=== PATIENT | female | born 1960 | race Caucasian/White ===

== ENCOUNTER 2016-11-16 20:40 | Emergency (ER) | payer SELFPAY ==
[~2016-11-16] VITALS: Ht 160 cm; Wt 100.0 kg
[~2016-11-16 20:40] MED LIST: AMLO10TA2 PO; HYDR-3533 PO; IBUP800T23 PO; LOSA50TA2 PO
[2016-11-16 20:49] VITALS: BP 146/84; PULSE 98; RESP 14; TEMP 98.9; O2SAT 98
[2016-11-16] MEDS ORDERED: VANCOMYCIN INJ 1,000 MG in SODIUM CHLOR 0.9% 250 ML INJ 250 ML IV ONE (21:30)
[2016-11-16] MEDS ORDERED: CLIN1CAP5 PO (21:37)
[2016-11-16] MEDS ORDERED: ZOFR4TAB3 SL (21:37)
[2016-11-16] MEDS ORDERED: BACT800T5 PO (21:37)
[2016-11-16] MEDS ORDERED: NORC5TAB PO (21:37)
--- NOTE | 2016-11-16 21:37 | PD ---
HPI Chief Complaint: Skin Problem Time Seen by Provider: 21:24 Travel History International Travel<30 days: No Contact w/Intl Traveler<30days: No Traveled to known affect area: No History of Present Illness HPI 56-year-old female complains of pain swelling right side of jaw. Patient states the symptoms started 4 days ago. Patient states that she has some pus draining out from the lesion the right-sided jaw. Patient denies any fever chills. Patient complaining of body ache. Patient denies any nausea vomiting diarrhea. Patient did that last TD booster was 2 years ago. 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) Neurologic: No Psychiatric: No Reproductive: Yes (FIBROIDS, BILATERAL OVARIAN CYSTS) Respiratory: Yes (PNEUMONIA) ?: Not : 3 Para: 3 Past Surgical History Tonsillectomy: Yes Other Surgery: No Social History Alcohol Use: Yes (occasional) Tobacco Use: No Substance Use: No Allergies-Medications (Allergen,Severity, Reaction): Coded Allergies: Aspirin (Verified Allergy, Severe, 11/16/16) Bee Sting (Verified Allergy, Severe, 11/16/16) Vioxx (Verified Allergy, Severe, RASH, 11/16/16) Dilaudid (Verified Adverse Reaction, Severe, nausea, 11/16/16) Reported Meds & Prescriptions Reported Meds & Active Scripts Active Ibuprofen 800 Mg Tab 800 Mg PO Q8H PRN Lortab (Hydrocodone-Acetaminophen) 5-325 Mg Tab 1 Tab PO Q6H PRN Reported Losartan-Hydrochlorothiazide 50-12.5 Mg Tab 1 Tab PO DAILY Amlodipine (Amlodipine Besylate) 10 Mg Tab 10 Mg PO DAILY Review of Systems General / Constitutional: No: Fever Eyes: No: Visual changes HENT: No: Headaches Cardiovascular: No: Chest Pain or Discomfort Respiratory: No: Shortness of Breath Gastrointestinal: No: Abdominal Pain Genitourinary: No: Dysuria Musculoskeletal: No: Pain Skin: No Rash Neurologic: No: Weakness Psychiatric: No: Depression Endocrine: No: Polydipsia Hematologic/Lymphatic: No: Easy Bruising Physical Exam Narrative GENERAL: Well-nourished, well-developed patient. SKIN: Warm and dry. HEAD: Normocephalic. EYES: No scleral icterus. No injection or drainage. NECK: Supple, trachea midline. No JVD or lymphadenopathy. CARDIOVASCULAR: Regular rate and rhythm without murmurs, gallops, or rubs. RESPIRATORY: Breath sounds equal bilaterally. No accessory muscle use. GASTROINTESTINAL: Abdomen soft, non-tender, nondistended. MUSCULOSKELETAL: No cyanosis, or edema. BACK: Nontender without obvious deformity. No CVA tenderness. Patient has an area of redness swelling tenderness right-sided jaw with a small lesion with minimal drainage noted. No induration. Data Data Last Documented VS Vital Signs Date Time Temp Pulse Resp B/P Pulse Ox O2 Delivery O2 Flow Rate FiO2 11/16/16 20:49 98.9 98 14 146/84 98 Room Air Orders Vancomycin Inj (Vancomycin Inj) (11/16/16 21:30) Iv Access Insert/Monitor (11/16/16 21:31) [facility] Medical Decision Making Medical Screen Exam Complete: Yes Emergency Medical Condition: Yes Differential Diagnosis Differential diagnosis including cellulitis, abscess. Narrative Course 56-year-old female with redness swelling tenderness right-sided jaw and with a draining lesion on the right-sided jaw. Vancomycin 1 g IV given. Diagnosis Primary Impression: Facial cellulitis Patient Instructions: General Instructions Additional Instructions: Take Medications as directed. Return in a.m. for recheck. Med/Other Pt SpecificInfo: Prescription(s) given Scripts Ondansetron Odt (Zofran Odt)4 Mg Tab4 Mg SL Q6HR PRN (Nausea/Vomiting) #10 TAB Prov:Celso Crowley MD 11/16/16 Hydrocodone-Acetaminophen ([place])5-325 mg Tab1 Tab PO Q6H PRN (PAIN) #20 TAB Prov:Celso Crowley MD 11/16/16 Clindamycin 150 Mg Cap2 Tab PO Q6H #80 CAP Prov:Celso Crowley MD 11/16/16 Sulfamethoxazole-Trimethoprim (Bactrim DS)800-160 Mg Tab1 Tab PO BID #20 TAB Prov:Celso Crowley MD 11/16/16 Disposition: 01 DISCHARGE HOME Condition: Stable Celso Crowley MD Nov 16, 2016 21:37
[2016-11-16] MEDS ORDERED: ONDANSETRON HCL 4 MG/2 ML VIAL IV PUSH ONE (21:45)
[2016-11-16] MEDS ORDERED: ACETAMINOPHEN/HYDROcodone 325 MG/5 MG TAB PO ONE (21:45)
[2016-11-16 23:12] VITALS: BP 136/82
== END 2016-11-16 23:29 | disposition home or self-care (01) ==
LOC: NEPB 20:40
DX: L03.211 Cellulitis of face (principal); M79.1 Myalgia; I10 Essential (primary) hypertension; Z86.2 Personal history of diseases of the blood and blood-forming organs and certain disorders involving the immune mechanism; Z86.79 Personal history of other diseases of the circulatory system; Z87.448 Personal history of other diseases of urinary system; Z87.39 Personal history of other diseases of the musculoskeletal system and connective tissue; Z87.42 Personal history of other diseases of the female genital tract; Z87.01 Personal history of pneumonia (recurrent)
CPT/HCPCS: 96365; 99283; J3370; J7050

== ENCOUNTER 2016-11-17 17:54 | Emergency (ER) | payer SELFPAY ==
[~2016-11-17] VITALS: Ht 160 cm; Wt 100.0 kg
[~2016-11-17 17:54] MED LIST changes: +BACT800T5 PO; +CLIN1CAP5 PO; +NORC5TAB PO; +ZOFR4TAB3 SL
[2016-11-17 17:57] VITALS: BP 172/93; PULSE 106; RESP 20; TEMP 98.1; O2SAT 95
[2016-11-17 20:52] VITALS: BP 158/118; PULSE 96; RESP 20; O2SAT 96
[2016-11-17] MEDS ORDERED: VANCOMYCIN INJ 1,000 MG in SODIUM CHLOR 0.9% 250 ML INJ 250 ML IV ONE (21:15)
[2016-11-17] MEDS ORDERED: LIDOCAINE 1%/EPINEPHrine 1:100,000 SOLN 20 ML VIAL INFIL ONE (21:15)
--- NOTE | 2016-11-17 21:20 | PD ---
HPI Chief Complaint: Skin Problem Time Seen by Provider: 21:09 Travel History International Travel<30 days: No Contact w/Intl Traveler<30days: No Traveled to known affect area: No History of Present Illness HPI 56-year-old female complains of facial pain. Patient was seen here yesterday facial cellulitis and possible abscess. Patient was given vancomycin 1 g IV and prescription for clindamycin and Bactrim DS. Patient states that she has been taking antibiotics as directed. Patient was given prescription for hydrocodone for pain also. Patient states that she had persistent pain in the right side of face. Patient denies any fever chills. 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) Neurologic: No Psychiatric: No Reproductive: Yes (FIBROIDS, BILATERAL OVARIAN CYSTS) Respiratory: Yes (PNEUMONIA) Tetanus Vaccination: < 5 Years Influenza Vaccination: No ?: Not : 3 Para: 3 Past Surgical History Tonsillectomy: Yes Other Surgery: No Social History Alcohol Use: Yes (rarely) Tobacco Use: No Substance Use: No Allergies-Medications (Allergen,Severity, Reaction): Coded Allergies: Aspirin (Verified Allergy, Severe, 11/17/16) Bee Sting (Verified Allergy, Severe, 11/17/16) Vioxx (Verified Allergy, Severe, RASH, 11/17/16) Dilaudid (Verified Adverse Reaction, Severe, nausea, 11/17/16) Reported Meds & Prescriptions Reported Meds & Active Scripts Active Shanks (Hydrocodone-Acetaminophen) 5-325 mg Tab 1 Tab PO Q6H PRN Clindamycin (Clindamycin HCl) 150 Mg Cap 2 Tab PO Q6H Bactrim DS (Sulfamethoxazole-Trimethoprim) 800-160 Mg Tab 1 Tab PO BID Reported Losartan-Hydrochlorothiazide 50-12.5 Mg Tab 1 Tab PO DAILY Amlodipine (Amlodipine Besylate) 10 Mg Tab 10 Mg PO DAILY Review of Systems General / Constitutional: No: Fever Eyes: No: Visual changes HENT: No: Headaches Cardiovascular: No: Chest Pain or Discomfort Respiratory: No: Shortness of Breath Gastrointestinal: No: Abdominal Pain Genitourinary: No: Dysuria Musculoskeletal: No: Pain Skin: No Rash Neurologic: No: Weakness Psychiatric: No: Depression Endocrine: No: Polydipsia Hematologic/Lymphatic: No: Easy Bruising Physical Exam Narrative GENERAL: Well-nourished, well-developed patient. SKIN: Warm and dry. HEAD: Normocephalic. EYES: No scleral icterus. No injection or drainage. NECK: Supple, trachea midline. No JVD or lymphadenopathy. CARDIOVASCULAR: Regular rate and rhythm without murmurs, gallops, or rubs. RESPIRATORY: Breath sounds equal bilaterally. No accessory muscle use. GASTROINTESTINAL: Abdomen soft, non-tender, nondistended. MUSCULOSKELETAL: No cyanosis, or edema. BACK: Nontender without obvious deformity. No CVA tenderness. Patient had the area redness swelling tenderness and firmness in the right sided jaw. No induration. Minimal discharge noted. Data Data Last Documented VS Vital Signs Date Time Temp Pulse Resp B/P Pulse Ox O2 Delivery O2 Flow Rate FiO2 11/17/16 20:52 96 20 158/118 96 Room Air 11/17/16 17:57 98.1 Orders Lidocai-Epi 1%-1:100,000 Inj (Xylocaine- (11/17/16 21:15) Wound Culture And Gram Stain (11/17/16 21:12) Vancomycin Inj (Vancomycin Inj) (11/17/16 21:15) [facility] Medical Decision Making Medical Screen Exam Complete: Yes Emergency Medical Condition: Yes Differential Diagnosis Differential diagnosis including facial cellulitis versus abscess. Narrative Course 56-year-old female with right-sided facial cellulitis versus abscess. Vancomycin 1 g IV now. I&D of the facial area will be done today. Diagnosis Primary Impression: Facial cellulitis Patient Instructions: General Instructions Additional Instructions: Continue with Bactrim DS and clindamycin as directed. Return in 2 days for recheck. Med/Other Pt SpecificInfo: No Change to Meds Disposition: 01 DISCHARGE HOME Condition: Stable Celso Crowley MD Nov 17, 2016 21:20
--- NOTE | 2016-11-17 21:31 | PD ---
Physical Exam Time Seen by Provider: 21:20 Data Data Last Documented VS Vital Signs Date Time Temp Pulse Resp B/P Pulse Ox O2 Delivery O2 Flow Rate FiO2 11/17/16 20:52 96 20 158/118 96 Room Air 11/17/16 17:57 98.1 Orders Lidocai-Epi 1%-1:100,000 Inj (Xylocaine- (11/17/16 21:15) Wound Culture And Gram Stain (11/17/16 21:12) Vancomycin Inj (Vancomycin Inj) (11/17/16 21:15) MDM Medical Record Reviewed: Yes Supervised Visit with NINFA: No Narrative Course The patient verbally consented the abscess incision and drainage. Wound culture performed. Procedures Procedure Narrative INCISION AND DRAINAGE OF ABSCESS: The area was prepped and was sterilely draped. A subcutaneous wheal of 1% Xylocaine with epinephrine with a total number 5 mL was used to anesthetize the area. The area was properly anesthetized. A number 11 scalpel was used to make a 1-cm incision across the area of the abscess. Cultures were obtained. The abscess was drained an irrigated with normal saline. Diagnosis Primary Impression: Facial cellulitis Patient Instructions: General Instructions Additional Instruction: Continue with Bactrim DS and clindamycin as directed. Return in 2 days for recheck. Disposition: 01 DISCHARGE HOME Condition: Stable Son Hutton Nov 17, 2016 21:30
[2016-11-17] MEDS ORDERED: ONDANSETRON HCL 4 MG/2 ML VIAL IV PUSH ONE (22:15)
== END 2016-11-18 00:41 | disposition home or self-care (01) ==
LOC: NEPA 17:54
DX: L03.211 Cellulitis of face (principal); I10 Essential (primary) hypertension
CPT/HCPCS: 10060; 86403; 87070; 87186; 96374; 96375; 99283; J2405; J3370; J7050; 87205

== ENCOUNTER 2017-04-22 20:49 | Emergency (ER) | payer SELFPAY ==
[~2017-04-22] VITALS: Ht 170.2 cm; Wt 77.0 kg
[~2017-04-22 20:49] MED LIST changes: -HYDR-3533 PO; -IBUP800T23 PO; -ZOFR4TAB3 SL
[2017-04-22 20:52] VITALS: BP 182/99; PULSE 99; RESP 16; TEMP 99; O2SAT 98
--- NOTE | 2017-04-22 21:30 | PD ---
Physical Exam Time Seen by Provider: 21:28 Narrative 56yo F c/o infected ingrowing toenail to Left great toe x 2 weeks. Denies fever , vomiting. +pus squeezed from area. Denies diabetes. Patient seen in triage. VS reviewed. Awaiting bed placement. Data Data Last Documented VS Vital Signs Date Time Temp Pulse Resp B/P Pulse Ox O2 Delivery O2 Flow Rate FiO2 04/22/17 21:41 Room Air 04/22/17 20:52 99.0 99 16 182/99 98 Orders Sulfamet-Trimeth Ds 800-160 Mg (Bactrim (04/22/17 22:00) Cephalexin (Keflex) (04/22/17 22:00) MDM Supervised Visit with NINFA: No Scripts Cephalexin 500 Mg [id number] Mg PO Q6H #40 CAP Prov:Kam Bustos MD 04/22/17 Sulfamethoxazole-Trimethoprim (Bactrim DS)800-160 Mg Tab1 Tab PO BID #20 TAB Prov:Kam Bustos MD 04/22/17 Cyndie Gonsalez Apr 22, 2017 21:30
[2017-04-22] MEDS ORDERED: BACT800T5 PO (21:55)
[2017-04-22] MEDS ORDERED: CEPH500C PO (21:55)
--- NOTE | 2017-04-22 21:58 | PD ---
HPI Chief Complaint: Injury Time Seen by Provider: 21:55 Travel History International Travel<30 days: No Contact w/Intl Traveler<30days: No Traveled to known affect area: No History of Present Illness HPI 56-year-old white female presents to emergency Department with complaints of an infected right great toe 2 weeks. She states that she has been expressing pus from up underneath her nail. She states that she's had an ingrown toenail now for some time. In the last 2 weeks it has become increasingly tender and started draining. She denies diabetes. No fever chills. Pain is mild to moderate. She's been soaking it in Epsom salts. 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) Neurologic: No Psychiatric: No Reproductive: Yes (FIBROIDS, BILATERAL OVARIAN CYSTS) Respiratory: Yes (PNEUMONIA) Tetanus Vaccination: < 5 Years Influenza Vaccination: No ?: Not LMP: 04/22/2017 : 3 Para: 3 Past Surgical History Tonsillectomy: Yes Other Surgery: No Social History Alcohol Use: No Tobacco Use: No Substance Use: No Allergies-Medications (Allergen,Severity, Reaction): Coded Allergies: Aspirin (Verified Allergy, Severe, 04/22/17) Bee Sting (Verified Allergy, Severe, 04/22/17) Vioxx (Verified Allergy, Severe, RASH, 04/22/17) Dilaudid (Verified Adverse Reaction, Severe, nausea, 04/22/17) Reported Meds & Prescriptions Reported Meds & Active Scripts Active Cephalexin 500 Mg Cap 500 Mg PO Q6H Bactrim DS (Sulfamethoxazole-Trimethoprim) 800-160 Mg Tab 1 Tab PO BID Reported Amlodipine (Amlodipine Besylate) 10 Mg Tab 10 Mg PO DAILY Review of Systems Except as stated in HPI: all other systems reviewed are Neg Physical Exam Narrative GENERAL: This is a well-nourished, well-developed patient, in no apparent distress. SKIN: No rashes, ecchymoses or lesions. Warm and dry. HEAD: Atraumatic. Normocephalic. EYES: PERRL, EOMI, no discharge or injection. No scleral icterus. EARS: Clear NOSE: Nasal turbinates appear normal. THROAT: Mucosa pink and moist. Airway patent. NECK: Trachea midline. supple, moves head freely. LUNGS: Clear to auscultation. CV: Regular in rhythm. ABDOMEN: Soft nontender. EXT: No clubbing cyanosis or edema. Examination of the right great toe reveals possible underneath the toenail with some drainage. She does have some mildly ingrown hypertrophied tissue around the edge of the toenail. There is no fluctuance or pointing. No obvious abscess. Data Data Last Documented VS Vital Signs Date Time Temp Pulse Resp B/P Pulse Ox O2 Delivery O2 Flow Rate FiO2 04/22/17 21:41 Room Air 04/22/17 20:52 99.0 99 16 182/99 98 MDM Medical Decision Making Medical Screen Exam Complete: Yes Emergency Medical Condition: Yes Medical Record Reviewed: Yes Differential Diagnosis MDM: High Differential diagnoses: Abscess, folliculitis, cellulitis, lymphangitis, abrasion, contact dermatitis Narrative Course Patient is given Bactrim DS and cephalexin 500 mg by mouth. This is right great toe infection Diagnosis Primary Impression: rIGHT GREAT TOE INFECTION Patient Instructions: General Instructions Additional Instructions: Rest. Elevation. keep clean and dry. Soak in Epsom salts 2-3 times a day.. Daily wound care with soap, water and Neosporin. Cephalexin and Bactrim DS Follow-up with a primary care doctor or a resource room teacher in one week. Return to the ER for any problems. Med/Other Pt SpecificInfo: Prescription(s) given Scripts Cephalexin 500 Mg [id number] Mg PO Q6H #40 CAP Prov:Kam Bustos MD 04/22/17 Sulfamethoxazole-Trimethoprim (Bactrim DS)800-160 Mg Tab1 Tab PO BID #20 TAB Prov:Kam Bustos MD 04/22/17 Disposition: 01 DISCHARGE HOME Condition: Stable Bautista Medel Apr 22, 2017 21:58
[2017-04-22] MEDS ORDERED: CEPHALEXIN MONOHYDRATE 500 MG CAP PO ONE (22:00)
[2017-04-22] MEDS ORDERED: SULFAMETHOXAZOLE-TRIMETHOPRIM DS 800-160 MG TAB PO ONE (22:00)
== END 2017-04-22 22:20 | disposition home or self-care (01) ==
LOC: NEPK 20:49
DX: L08.9 Local infection of the skin and subcutaneous tissue, unspecified (principal); L60.0 Ingrowing nail
CPT/HCPCS: 99284

== ENCOUNTER 2017-09-01 07:52 | Emergency (ER) | payer SELFPAY ==
[~2017-09-01] VITALS: Ht 160 cm; Wt 104.5 kg
[~2017-09-01 07:52] MED LIST changes: +CEPH500C PO; -CLIN1CAP5 PO; -LOSA50TA2 PO; -NORC5TAB PO
[2017-09-01 07:57] VITALS: BP 212/100; PULSE 77; RESP 16; TEMP 97.9; O2SAT 97
[2017-09-01 08:10] VITALS: BP 195/112; PULSE 84; RESP 18; O2SAT 97
--- NOTE | 2017-09-01 08:24 | PD ---
HPI Chief Complaint: ENT Complaint Time Seen by Provider: 08:20 Travel History International Travel<30 days: No Contact w/Intl Traveler<30days: No Traveled to known affect area: No History of Present Illness HPI 56-year-old female patient with history of hypertension, presents to the ER today because she's had 3 weeks' history of throat pains especially on the left side, but states that it started out of both sides. She states it hurts to swallow water. However, she is able to swallow water and is able to control her secretions. She denies any vomiting, chest pains, shortness of breath, fevers, coughing, or any other issues. She also states that her blood pressure has been high even though she is taking her blood pressure medications. 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) Neurologic: No Psychiatric: No Reproductive: Yes (FIBROIDS, BILATERAL OVARIAN CYSTS) Respiratory: Yes (PNEUMONIA) ?: Not : 3 Para: 3 Past Surgical History Tonsillectomy: Yes Other Surgery: No Social History Alcohol Use: No Tobacco Use: No Substance Use: Yes Allergies-Medications (Allergen,Severity, Reaction): Coded Allergies: aspirin (Unverified Allergy, Severe, 09/01/17) bee venom protein (honey bee) (Unverified Allergy, Severe, 09/01/17) rofecoxib (Unverified Allergy, Severe, RASH, 09/01/17) hydromorphone (Unverified Adverse Reaction, Severe, nausea, 09/01/17) Reported Meds & Prescriptions Reported Meds & Active Scripts Active Reported Amlodipine (Amlodipine Besylate) 10 Mg Tab 10 Mg PO DAILY Review of Systems Except as stated in HPI: all other systems reviewed are Neg Physical Exam Narrative GENERAL: Well-developed middle age white female patient currently in mild distress. Awake and oriented 3. SKIN: Focused skin assessment warm/dry. HEAD: Atraumatic. Normocephalic. EYES: Pupils equal and round. No scleral icterus. No injection or drainage. ENT: Mucosa pink and moist. Mild erythema with no exudates. No uvular edema. No uvular, palatal, or tonsillar deviation. Airway patent. NECK: Trachea midline. No JVD. Supple. No palpable masses or significant lymphadenopathy. CARDIOVASCULAR: Regular rate and rhythm. No murmur appreciated. RESPIRATORY: No accessory muscle use. Clear to auscultation. Breath sounds equal bilaterally. GASTROINTESTINAL: Abdomen soft, non-tender, nondistended. Hepatic and splenic margins not palpable. MUSCULOSKELETAL: No obvious deformities. No clubbing. No cyanosis. No edema. NEUROLOGICAL: Awake and alert. No obvious cranial nerve deficits. Motor grossly within normal limits. Normal speech. PSYCHIATRIC: Appropriate mood and affect; insight and judgment normal. Data Data Last Documented VS Vital Signs Date Time Temp Pulse Resp B/P (MAP) Pulse Ox O2 Delivery O2 Flow Rate FiO2 09/01/17 09:43 84 189/116 (140) 09/01/17 08:10 18 97 Room Air 09/01/17 07:57 97.9 Orders Orders Group A Rapid Strep Screen (09/01/17 08:20) Soft Tissue Neck (09/01/17 ) Amlodipine (Norvasc) (09/01/17 09:00) Strep Culture (Group A) (09/01/17 00:25) Ed Discharge Order (09/01/17 09:46) MDM Medical Decision Making Medical Screen Exam Complete: Yes Emergency Medical Condition: Yes Medical Record Reviewed: Yes Differential Diagnosis Sore throat, elevated blood pressures: Strep pharyngitis versus epiglottitis versus foreign body versus peritonsillar abscess Narrative Course Rapid strep is negative. Her x-ray did not show any signs of epiglottitis. Evaluation did not show any signs of obvious tonsillar pillar deformities, did not see any signs of peritonsillar abscess. At this point, my plan would be to treat her empirically for pharyngitis and have her follow-up with primary care doctor. Return for any worsening in symptoms as needed. The plan has discussed with her and she states understanding. In addition, patient was given amlodipine for her blood pressure, did not take her blood pressure medications this morning. She was given amlodipine in the ER and on reevaluation half an hour after amlodipine, her blood pressures are coming down. I would have her follow-up with her primary care physician regarding her blood pressures as well. She needs to take amlodipine on a consistent basis at around same times each morning. The plan was discussed with her and she states understanding. Diagnosis Primary Impression: Chronic hypertension Additional Impression: Pharyngitis Med/Other Pt SpecificInfo: Prescription(s) given Scripts Penicillin V Potassium (Penicillin V Potassium) 500 Mg Tab 500 MG PO Q6H for Infection for 7 Days, #28 TAB 0 Refills Prov: Mindy Curran MD 09/01/17 Disposition: 01 DISCHARGE HOME Condition: Stable Mindy Curran MD Sep 01, 2017 08:24
--- NOTE | 2017-09-01 09:29 | RADRPT ---
EXAM DATE/TIME: 09/01/2017 08:57 [facility] COMPARISON: No previous studies available for comparison. INDICATIONS : Throat pain on both sides for three weeks. MEDICAL HISTORY : None. SURGICAL HISTORY : Tonsillectomy. ENCOUNTER: Initial ACUITY: 3 weeks PAIN SCORE: 5/10 LOCATION: Neck. FINDINGS: Two view examination of the soft tissues of the neck demonstrates the hypopharyngeal airway to have a grossly normal configuration. The trachea is midline. No radiopaque foreign bodies are seen. CONCLUSION: Degenerative changes lower cervical spine otherwise negative Ernie Ortiz MD FACR on September 01, 2017 at 9:27 Board Certified Radiologist. This report was verified electronically.
[2017-09-01 09:43] VITALS: BP 189/116; PULSE 84
[2017-09-01] MEDS ORDERED: PENI500T PO (09:48)
== END 2017-09-01 10:00 | disposition home or self-care (01) ==
LOC: NEPC 07:52
DX: I10 Essential (primary) hypertension (principal); J02.9 Acute pharyngitis, unspecified
CPT/HCPCS: 70360; 87081; 87880; 99284

== ENCOUNTER 2017-10-24 18:53 | Emergency (ER) | payer SELFPAY ==
[~2017-10-24] VITALS: Ht 160 cm; Wt 100.0 kg
[~2017-10-24 18:53] MED LIST changes: -BACT800T5 PO; -CEPH500C PO; +PENI500T PO
[2017-10-24 18:55] VITALS: BP 195/95; PULSE 85; RESP 16; TEMP 98.4; O2SAT 96
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
[2017-10-24] MEDS ORDERED: BACL10TA PO (21:04)
--- NOTE | 2017-10-24 21:09 | RADRPT ---
EXAM DATE/TIME: 10/24/2017 20:51 [facility] COMPARISON: No previous studies available for comparison. INDICATIONS : Fall tonight. Posterior pain. MEDICAL HISTORY : None. SURGICAL HISTORY : None. ENCOUNTER: Initial ACUITY: 1 day PAIN SCORE: 6/10 LOCATION: Right Shoulder FINDINGS: Multiple view examination of the right shoulder demonstrates no evidence of fracture or dislocation. The glenohumeral and acromioclavicular joints are maintained. There is normal range of motion betwe en internal and external rotation. Bony mineralization is normal. CONCLUSION: 1. No acute findings. Bautista Mitchell MD on October 24, 2017 at 21:06 Board Certified Radiologist. This report was verified electronically.
--- NOTE | 2017-10-24 21:09 | RADRPT ---
EXAM DATE/TIME: 10/24/2017 20:56 [facility] COMPARISON: No previous studies available for comparison. INDICATIONS : Fall tonight. Medial pain. MEDICAL HISTORY : None. SURGICAL HISTORY : None. ENCOUNTER: Initial ACUITY: 1 day PAIN SCORE: 6/10 LOCATION: Left Ankle FINDINGS: Three view exam was performed of the left ankle. The bony structures are in normal alignment. No ev idence of fracture, dislocation. The ankle mortise is intact. No radiopaque foreign bodies are seen . Bony mineralization is normal. CONCLUSION: 1. No acute bony abnormality. Mild soft tissue swelling at the ankle. Bautista Mitchell MD on October 24, 2017 at 21:07 Board Certified Radiologist. This report was verified electronically.
== END 2017-10-24 21:27 | disposition home or self-care (01) ==
LOC: NEPK 18:53
DX: M79.1 Myalgia (principal); I10 Essential (primary) hypertension; M19.90 Unspecified osteoarthritis, unspecified site
CPT/HCPCS: 73030; 73610; 99284

== ENCOUNTER 2017-11-30 19:23 | Emergency (ER) | payer SELFPAY ==
[~2017-11-30 19:23] MED LIST changes: +BACL10TA PO
[2017-11-30] MEDS ORDERED: IOHEXOL 350 MG/ML 10 ML VIAL (for RAD DIAG) IVCONTRAST ONE (19:24)
[2017-11-30 19:41] VITALS: BP 173/94; PULSE 90; RESP 16; TEMP 98.8; O2SAT 97
[2017-11-30] MEDS ORDERED: LOVA10TA PO (21:43)
[2017-11-30 21:54] LABS: AUTOMATED NEUTROPHIL # 6.8 TH/MM3 (1.8-7.7); BASOPHIL # 0.1 TH/MM3 (0-0.2); BASOPHIL % 1.3 % (0.0-2.0); EOSINOPHIL # 0.5 TH/MM3 (0-0.4); EOSINOPHIL % 5.2 % (0.0-4.0); HEMOGLOBIN 11.3 GM/DL (11.6-15.3); LYMPHOCYTE # 2.2 TH/MM3 (1.0-4.8); MEAN CELL VOLUME 90.1 FL (80.0-100.0); MEAN CORPUSCULAR HEMOGLOBIN 34.1 PG (27.0-34.0); MEAN PLATELET VOLUME 7.5 FL (7.0-11.0); MONO % 6.9 % (0.0-8.0); MONOCYTE # 0.7 TH/MM3 (0-0.9); NEUT % 65.6 % (16.0-70.0); PLATELET COUNT 265 TH/MM3 (150-450); RED BLOOD COUNT 3.33 MIL/MM3 (4.00-5.30); RED CELL DISTRIBUTION WIDTH 14.3 % (11.6-17.2); WHITE BLOOD COUNT 10.4 TH/MM3 (4.0-11.0)
[2017-11-30 22:00] LABS: MEAN CORPUSCULAR HGB CONC 37.8 % (32.0-36.0)
[2017-11-30 22:01] LABS: BICARBONATE 27.3 MEQ/L (21.0-32.0); CALCIUM 8.6 MG/DL (8.5-10.1); CREATININE 1.11 MG/DL (0.50-1.00)
[2017-11-30 22:59] VITALS: BP 149/74; PULSE 80; RESP 18; O2SAT 97
[2017-12-01] MEDS ORDERED: PROV10TA PO (00:50)
--- NOTE | 2017-12-01 00:51 | PD ---
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 Patient presents with complaint of 3 weeks of vaginal bleeding. Patient concerned that she needs transfusion. No lightheadedness no near-syncope no shortness of breath no sweats no chest pain; patient states that she is changing multiple sanitary pads per day. Patient states she does not have insurance, so cannot go see a primary care provider or preschool aide. Patient requests prescription for Provera as has been on this before when she has had 2 separate episodes of similar bleeding. Patient has known uterine fibroids. Patient also reports that she is out of her antihypertensive medication and she does not currently have a provider. 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) Neurologic: No Psychiatric: No Reproductive: Yes (FIBROIDS, BILATERAL OVARIAN CYSTS) Respiratory: Yes (PNEUMONIA) ?: Not : 3 Para: 3 Past Surgical History Tonsillectomy: Yes Other Surgery: No Social History Alcohol Use: No Tobacco Use: No Substance Use: No (DENIES) Allergies-Medications (Allergen,Severity, Reaction): Coded Allergies: aspirin (Unverified Allergy, Severe, 11/30/17) bee venom protein (honey bee) (Unverified Allergy, Severe, 11/30/17) rofecoxib (Unverified Allergy, Severe, RASH, 11/30/17) hydromorphone (Unverified Adverse Reaction, Severe, nausea, 11/30/17) Reported Meds & Prescriptions Reported Meds & Active Scripts Active Provera (Medroxyprogesterone Acetate) 10 Mg Tab 20 Mg PO DAILY 14 Days Start day 16 Baclofen 10 Mg Tab 10 Mg PO Q8HR 7 Days Reported Lovastatin 10 Mg Tab 10 Mg PO DAILY Amlodipine (Amlodipine Besylate) 10 Mg Tab 10 Mg PO DAILY Review of Systems Except as stated in HPI: all other systems reviewed are Neg General / Constitutional: No: Fever, Chills HENT: No: Congestion Cardiovascular: No: Chest Pain or Discomfort, Palpitations, Diaphoresis Respiratory: No: Cough, Shortness of Breath Gastrointestinal: Positive: Abdominal Pain (rlq), No: Nausea, Vomiting Genitourinary: Positive: Metorrhagia, Vaginal Bleeding, No: Dysuria, Flank Pain Musculoskeletal: No: Myalgias, Arthralgias Skin: No Rash Neurologic: No: Weakness, Dizziness Psychiatric: No: Anxiety Hematologic/Lymphatic: No: Lymph Node Enlargement Physical Exam Narrative GENERAL: Well-developed well-nourished female no acute distress no respiratory SKIN: Warm and dry. HEAD: Normocephalic. EYES: No scleral icterus. No injection or drainage. NECK: Supple, trachea midline. No JVD or lymphadenopathy. CARDIOVASCULAR: Regular rate and rhythm without murmurs, gallops, or rubs. RESPIRATORY: Breath sounds equal bilaterally. No accessory muscle use. GASTROINTESTINAL: Abdomen soft, mild right lower quadrant and suprapubic tenderness to direct palpation no guarding or rebound, nondistended. Pelvic exam: Normal external exam no redness no induration or lesion; speculum exam scant amount of blood in the vaginal vault with small flecks of blood clot no tissue loss is closed; bimanual exam firmness and fullness of the uterus nontender cervical loss closed no adnexal mass or tenderness MUSCULOSKELETAL: No cyanosis, or edema. BACK: Nontender without obvious deformity. No CVA tenderness. Data Data Last Documented VS Vital Signs Date Time Temp Pulse Resp B/P (MAP) Pulse Ox O2 Delivery O2 Flow Rate FiO2 12/01/17 04:16 79 16 182/92 (122) 97 Room Air 11/30/17 19:41 98.8 Orders Orders Basic Metabolic Panel (Bmp) (11/30/17 21:02) Complete Blood Count With Diff (11/30/17 21:02) Type And Screen (11/30/17 21:02) Mandatory Outpatient Referral (12/01/17 00:50) Ct Abd/Pel W Iv Contrast(Rout) (12/01/17 ) Iohexol 350 Inj (Omnipaque 350 Inj) (11/30/17 19:24) Ed Discharge Order (12/01/17 04:18) Labs Laboratory Tests Test 11/30/17 21:07 White Blood Count 10.4 TH/MM3 Red Blood Count 3.33 MIL/MM3 Hemoglobin 11.3 GM/DL Hematocrit 30.0 % Mean Corpuscular Volume 90.1 FL Mean Corpuscular Hemoglobin 34.1 PG Mean Corpuscular Hemoglobin Concent 37.8 % Red Cell Distribution Width 14.3 % Platelet Count 265 TH/MM3 Mean Platelet Volume 7.5 FL Neutrophils (%) (Auto) 65.6 % Lymphocytes (%) (Auto) 21.0 % Monocytes (%) (Auto) 6.9 % Eosinophils (%) (Auto) 5.2 % Basophils (%) (Auto) 1.3 % Neutrophils # (Auto) 6.8 TH/MM3 Lymphocytes # (Auto) 2.2 TH/MM3 Monocytes # (Auto) 0.7 TH/MM3 Eosinophils # (Auto) 0.5 TH/MM3 Basophils # (Auto) 0.1 TH/MM3 CBC Comment AUTO DIFF Differential Comment AUTO DIFF CONFIRMED Platelet Estimate NORMAL Platelet Morphology Comment NORMAL Red Cell Morphology Comment NORMAL Blood Urea Nitrogen 15 MG/DL Creatinine 1.11 MG/DL Random Glucose 101 MG/DL Calcium Level 8.6 MG/DL Sodium Level 139 MEQ/L Potassium Level 3.9 MEQ/L Chloride Level 102 MEQ/L Carbon Dioxide Level 27.3 MEQ/L Anion Gap 10 MEQ/L Estimat Glomerular Filtration Rate 51 ML/MIN [facility] Medical Decision Making Medical Screen Exam Complete: Yes Emergency Medical Condition: Yes Medical Record Reviewed: Yes Interpretation(s) CBC & BMP Diagram 11/30/17 21:07 Calcium Level 8.6 Vital Signs Date Time Temp Pulse Resp B/P (MAP) Pulse Ox O2 Delivery O2 Flow Rate FiO2 12/01/17 04:16 79 16 182/92 (122) 97 Room Air 11/30/17 22:59 80 18 149/74 (99) 97 Room Air 11/30/17 21:53 80 18 11/30/17 19:41 98.8 90 16 173/94 (120) [address] abd/pel: CONCLUSION: 1. Normal appendix. The bowel gas pattern is within normal limits. 2. Moderate hepatic steatosis. 3. Unremarkable gallbladder. 4. Mild diverticulosis with no inflammatory change. Yasir Cordon MD on December 01, 2017 at 3:50 Board Certified Radiologist. This report was verified electronically. Differential Diagnosis Dysfunctional uterine bleeding postmenopausal bleeding uterine mass uterine fibroid anemia Narrative Course Patient identified to have minimal anemia is not orthostatic lab values otherwise grossly normal range patient has had history of uterine fibroids with dysfunctional uterine bleeding and has been managed successfully in the past with Provera patient has not recently seen a preschool aide. Patient has not had any weight loss and no increase in abdominal girth. On pelvic exam patient has no cervical motion tenderness mild enlargement of the uterus consistent with probable uterine fibroid patient had scant amount of blood in the vaginal vault loss is closed in a few small flecks of clot noted. Patient did saturate a sanitary pad that had been in place for 7 hours but otherwise no further bleeding in the emergency department. CT imaging of the abdomen and pelvis reveals no reported reproductive organ abnormalities specifically no reported mass and no free fluid in the pelvis also no ascites. Patient is stable for outpatient management has been provided prescription for Provera is encouraged to follow-up with preschool aide and mandatory referral to COMMERCIAL REPRESENTATIVE has been ordered Diagnosis Primary Impression: Vaginal bleeding Additional Impressions: Hypertension Medication refill Referrals: Dental Sales Representative call for appointment Primary Care Physician call for appointment Patient Instructions: General Instructions Additional Instructions: Take medication as prescribed Follow-up with preschool aide Return to the emergency department for concerns or change in condition Med/Other Pt SpecificInfo: Prescription(s) given Scripts Medroxyprogesterone Acetate (Provera) 10 Mg Tab 20 MG PO DAILY for Uterine bleeding for 14 Days, #28 TAB 0 Refills Start day 16 Prov: Melvina Miguel MD 12/01/17 Disposition: 01 DISCHARGE HOME Condition: Stable Melvina Miguel MD Dec 01, 2017 00:51
--- NOTE | 2017-12-01 03:54 | RADRPT ---
EXAM DATE/TIME: 12/01/2017 03:04 [facility] COMPARISON: CT ABDOMEN & PELVIS W CONTRAST, April 07, 2015, 22:14. INDICATIONS : Right lower quadrant pain. IV CONTRAST: 96 cc Omnipaque 350 (iohexol) IV ORAL CONTRAST: No oral contrast ingested. RADIATION DOSE: 21.44 CTDIvol (mGy) MEDICAL HISTORY : Hypertension. SURGICAL HISTORY : None. ENCOUNTER: Initial ACUITY: 1 day PAIN SCALE: 6/10 LOCATION: Right lower quadrant TECHNIQUE: Volumetric scanning of the abdomen and pelvis was performed. Using automated exposure control and ad justment of the mA and/or kV according to patient size, radiation dose was kept as low as reasonably achievable to obtain optimal diagnostic quality images. DICOM format image data is available electro nically for review and comparison. FINDINGS: LOWER LUNGS: The visualized lower lungs are clear. LIVER: Homogeneous density without lesion. There is no dilation of the biliary tree. No calcified gallston es. There is moderate hepatic steatosis. SPLEEN: Normal size without lesion. PANCREAS: Within normal limits. KIDNEYS: Normal in size and shape. There is no mass, stone or hydronephrosis. ADRENAL GLANDS: Within normal limits. VASCULAR: There is no aortic aneurysm. BOWEL/MESENTERY: The stomach, small bowel, and colon demonstrate no acute abnormality. Small scattered diverticuli are present. There is normal appendix. There is no free intraperitoneal air or fluid. ABDOMINAL WALL: Within normal limits. RETROPERITONEUM: There is no lymphadenopathy. BLADDER: No wall thickening or mass. REPRODUCTIVE: Within normal limits. INGUINAL: There is no lymphadenopathy or hernia. MUSCULOSKELETAL: Within normal limits for patient age. CONCLUSION: 1. Normal appendix. The bowel gas pattern is within normal limits. 2. Moderate hepatic steatosis. 3. Unremarkable gallbladder. 4. Mild diverticulosis with no inflammatory change. Yasir Cordon MD on December 01, 2017 at 3:50 Board Certified Radiologist. This report was verified electronically.
[2017-12-01 04:16] VITALS: BP 182/92; PULSE 79; RESP 16; O2SAT 97
== END 2017-12-01 04:43 | disposition home or self-care (01) ==
LOC: NEPC 19:23
DX: N93.9 Abnormal uterine and vaginal bleeding, unspecified (principal); Z76.0 Encounter for issue of repeat prescription; I10 Essential (primary) hypertension; D25.9 Leiomyoma of uterus, unspecified; D64.9 Anemia, unspecified; Z88.5 Allergy status to narcotic agent
CPT/HCPCS: 74177; 80048; 85025; 86850; 86900; 86901; 99284; Q9967

== ENCOUNTER 2017-12-24 18:43 | Emergency (ER) | payer SELFPAY ==
[~2017-12-24] VITALS: Ht 160 cm; Wt 103.6 kg
[~2017-12-24 18:43] MED LIST changes: +LOVA10TA PO; -PENI500T PO; +PROV10TA PO
[2017-12-24 18:47] VITALS: BP 186/92; PULSE 99; RESP 20; TEMP 97.4; O2SAT 100
[2017-12-24] MEDS ORDERED: HYDR-2376 PO (20:06)
[2017-12-24] MEDS ORDERED: AMOX500T PO (20:06)
[2017-12-24] MEDS ORDERED: CORITAB PO (20:07)
--- NOTE | 2017-12-24 20:14 | PD ---
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 She reports that she has been using several pads a day, approximately one pad every 3 hours. She reports decreased energy and lightheadedness associated with this. She was seen here on November 30 with similar complaint. She was started on Provera at that time which she has used in the past. Symptoms persist which prompted reevaluation today. A mandatory outpatient referral for gynecology was placed at that time but no follow-up appointments are made. She is not on any anticoagulation. She reports a history of fibroids. She has no other complaints at this time. 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) Neurologic: No Psychiatric: No Reproductive: Yes (FIBROIDS, BILATERAL OVARIAN CYSTS) Respiratory: Yes (PNEUMONIA) ?: Not : 3 Para: 3 Past Surgical History Tonsillectomy: Yes Other Surgery: No Social History Alcohol Use: No Tobacco Use: No Substance Use: No (DENIES) Allergies-Medications (Allergen,Severity, Reaction): Coded Allergies: aspirin (Verified Allergy, Severe, 12/24/17) bee venom protein (honey bee) (Verified Allergy, Severe, 12/24/17) rofecoxib (Verified Allergy, Severe, RASH, 12/24/17) hydromorphone (Verified Adverse Reaction, Severe, nausea, 12/24/17) Reported Meds & Prescriptions Reported Meds & Active Scripts Active Provera (Medroxyprogesterone Acetate) 10 Mg Tab 20 Mg PO DAILY 14 Days Start day 16 Reported Coricidin Hbp Cough & Cold (Chlorpheniramine-Dm) 4-30 Mg Tab 1 Tab PO Q6H PRN Hydrocodone-Acetaminophen 7.5-300 Mg Tab 1 Tab PO Q6H PRN Amoxicillin 500 Mg Tab 500 Mg PO TID Lovastatin 10 Mg Tab 10 Mg PO DAILY Amlodipine (Amlodipine Besylate) 10 Mg Tab 10 Mg PO DAILY Review of Systems Except as stated in HPI: all other systems reviewed are Neg Physical Exam Narrative GENERAL: This is a well-developed well-nourished female no acute distress SKIN: Warm and dry. HEAD: Atraumatic. Normocephalic. EYES: Pupils equal and round. No scleral icterus. No injection or drainage. ENT: No nasal bleeding or discharge. Mucous membranes pink and moist. NECK: Trachea midline. No JVD. CARDIOVASCULAR: Regular rate and rhythm. No murmur appreciated. RESPIRATORY: No accessory muscle use. Clear to auscultation. Breath sounds equal bilaterally. GASTROINTESTINAL: Abdomen soft, non-tender, nondistended. Hepatic and splenic margins not palpable. Pelvic examination in the presence of a female nurse: There is some blood noted in the vaginal canal which was removed with a large Q-tip. There is no cervical motion tenderness or adnexal tenderness. MUSCULOSKELETAL: No obvious deformities. NEUROLOGICAL: Awake and alert. No obvious cranial nerve deficits. Motor grossly within normal limits. Normal speech. Data Data Last Documented VS Vital Signs Date Time Temp Pulse Resp B/P (MAP) Pulse Ox O2 Delivery O2 Flow Rate FiO2 12/24/17 18:47 97.4 99 20 186/92 (123) 100 Orders Orders Complete Blood Count With Diff (12/24/17 18:50) Comprehensive Metabolic Panel (12/24/17 18:50) Prothrombin Time / Inr (Pt) (12/24/17 18:50) Act Partial Throm Time (Ptt) (12/24/17 18:50) Urinalysis - C+S If Indicated (12/24/17 18:50) Type And Screen (12/24/17 18:50) Us Pelvis Comp W Transvaginal (12/24/17 20:06) Mandatory Outpatient Referral (12/24/17 21:49) Urine Culture (12/24/17 20:10) Labs Laboratory Tests Test 12/24/17 20:10 12/24/17 20:20 Urine Color LIGHT-RED Urine Turbidity HAZY Urine pH 6.0 Urine Specific [place] 1.023 Urine Protein 100 mg/dL Urine Glucose (UA) NEG mg/dL Urine Ketones TRACE mg/dL Urine Occult Blood LARGE Urine Nitrite NEG Urine Bilirubin NEG Urine Urobilinogen LESS THAN 2.0 MG/DL Urine Leukocyte Esterase LARGE Urine RBC /hpf Urine WBC 116 /hpf Urine Squamous Epithelial Cells 2 /hpf Microscopic Urinalysis Comment CULTURE INDICATED White Blood Count 15.2 TH/MM3 Red Blood Count 3.23 MIL/MM3 Hemoglobin 9.5 GM/DL Hematocrit 28.9 % Mean Corpuscular Volume 89.3 FL Mean Corpuscular Hemoglobin 29.3 PG Mean Corpuscular Hemoglobin Concent 32.8 % Red Cell Distribution Width 14.4 % Platelet Count 475 TH/MM3 Mean Platelet Volume 7.7 FL Neutrophils (%) (Auto) 76.3 % Lymphocytes (%) (Auto) 12.7 % Monocytes (%) (Auto) 6.0 % Eosinophils (%) (Auto) 3.1 % Basophils (%) (Auto) 1.9 % Neutrophils # (Auto) 11.6 TH/MM3 Lymphocytes # (Auto) 1.9 TH/MM3 Monocytes # (Auto) 0.9 TH/MM3 Eosinophils # (Auto) 0.5 TH/MM3 Basophils # (Auto) 0.3 TH/MM3 CBC Comment DIFF FINAL Differential Comment Blood Urea Nitrogen 20 MG/DL Creatinine 1.22 MG/DL Random Glucose 114 MG/DL Total Protein 8.0 GM/DL Albumin 3.9 GM/DL Calcium Level 9.3 MG/DL Alkaline Phosphatase 76 U/L Aspartate Amino Transf (AST/SGOT) 21 U/L Alanine Aminotransferase (ALT/SGPT) 23 U/L Total Bilirubin 0.4 MG/DL Sodium Level 139 MEQ/L Potassium Level 3.7 MEQ/L Chloride Level 109 MEQ/L Carbon Dioxide Level 19.5 MEQ/L Anion Gap 11 MEQ/L Estimat Glomerular Filtration Rate 46 ML/MIN [facility] Medical Decision Making Medical Screen Exam Complete: Yes Emergency Medical Condition: Yes Medical Record Reviewed: Yes Differential Diagnosis Abnormal uterine bleeding, symptomatic anemia, endometriosis, uterine malignancy , cervical malignancy, fibroid Narrative Course Lab work was ordered in triage. A type and screen has been ordered. Ultrasound of uterus has been ordered. CBC reveals a hemoglobin of 9.5 which is decreased from 11.3 on November 30 but does not rise to the level of requiring transfusion. WBC count is 15.2, no clinical evidence of infectious process. CMP reveals a GFR 46 which is consistent with her baseline. Ultrasound reveals a prominent endometrium and endometrial carcinoma cannot be excluded. Certainly this patient requires gynecology follow-up for this postmenopausal vaginal bleeding. When the patient was seen here in November 30 a mandatory outpatient referral for gynecology was placed however no follow-up was performed. I discussed with the home health care case manager who will make sure to mention this to the home health care case manager that performs mandatory outpatient referrals in the morning. Another mandatory outpatient referral has been placed. I discussed the concern with the patient in great detail. She understands to return for any worsening bleeding or symptomatic anemia symptoms. Her urinalysis reveals large blood and large leukocytes, likely much of this is contaminated. She has no UTI symptoms. She also reports that she was started on amoxicillin yesterday by dentist after having tooth extraction and therefore additional antibiotic treatment would be deferred unless urine culture grows out bacteria that is resistant to amoxicillin. She is stable for discharge. Diagnosis Primary Impression: Postmenopausal vaginal bleeding Referrals: Service Order Expediter Additional Instructions: As discussed, follow-up with gynecology for further evaluation and treatment. Return for any acutely new or worsening symptoms such as severe bleeding, severe lightheadedness/dizziness, syncope Med/Other Pt SpecificInfo: No Change to Meds Disposition: 01 DISCHARGE HOME Condition: Stable Son Hutton Dec 24, 2017 20:13
--- NOTE | 2017-12-24 21:21 | RADRPT ---
EXAM DATE/TIME: 12/24/2017 20:35 [facility] COMPARISON: No previous studies available for comparison. INDICATIONS : Bleeding. MEDICAL HISTORY : Hypertension. . Glasses. Pneumonia. Fibroids. Bilateral ovarian cysts. Urinary tract infec tion. Arthritis. Herniated disc. Measels. SURGICAL HISTORY : Tonsillectomy. ENCOUNTER: Initial ACUITY: 3 months PAIN SCORE: 2/10 LOCATION: Bilateral pelvis MEASUREMENTS: UTERUS: 11.4 x 7.5 x 6.0 cm ENDOMETRIAL STRIPE: 8 mm RIGHT OVARY: Non visualized LEFT OVARY: Non visualized FINDINGS: UTERUS: The myometrium has homogeneous echotexture without mass.Nabothian cysts. MISCELLANEOUS: No free fluid. Ovaries are not seen. CONCLUSION: 1. Endometrium is prominent in postmenopausal female. Endometrial carcinoma should be excluded. 2. Nonvisualization of the ovaries. Mele Frausto MD on December 24, 2017 at 21:18 Board Certified Radiologist. This report was verified electronically.
[2017-12-24 21:27] LABS: AUTOMATED NEUTROPHIL # 11.6 TH/MM3 (1.8-7.7); BASOPHIL # 0.3 TH/MM3 (0-0.2); BASOPHIL % 1.9 % (0.0-2.0); EOSINOPHIL # 0.5 TH/MM3 (0-0.4); EOSINOPHIL % 3.1 % (0.0-4.0); HEMATOCRIT 28.9 % (35.0-46.0); HEMOGLOBIN 9.5 GM/DL (11.6-15.3); LYMPH % 12.7 % (9.0-44.0); LYMPHOCYTE # 1.9 TH/MM3 (1.0-4.8); MEAN CELL VOLUME 89.3 FL (80.0-100.0); MEAN CORPUSCULAR HEMOGLOBIN 29.3 PG (27.0-34.0); MEAN CORPUSCULAR HGB CONC 32.8 % (32.0-36.0); MEAN PLATELET VOLUME 7.7 FL (7.0-11.0); MONOCYTE # 0.9 TH/MM3 (0-0.9); NEUT % 76.3 % (16.0-70.0); PLATELET COUNT 475 TH/MM3 (150-450); RED BLOOD COUNT 3.23 MIL/MM3 (4.00-5.30); RED CELL DISTRIBUTION WIDTH 14.4 % (11.6-17.2); WHITE BLOOD COUNT 15.2 TH/MM3 (4.0-11.0)
[2017-12-24 21:40] LABS: BILIRUBIN, URINE NEG (NEG); BLOOD, URINE LARGE (NEG); GLUCOSE,URINE NEG (NEG); KETONE, URINE TRACE mg/dL (NEG); NITRITE,URINE NEG (NEG); SQUAMOUS EPITHELIAL CELL URINE 2 /hpf (0-5); URINE LEUKOCYTE ESTERASE LARGE (NEG)
[2017-12-24 21:41] LABS: ALBUMIN 3.9 GM/DL (3.4-5.0); AST (GOT) 21 U/L (15-37); BICARBONATE 19.5 MEQ/L (21.0-32.0); BLOOD UREA NITROGEN 20 MG/DL (7-18); CALCIUM 9.3 MG/DL (8.5-10.1); CHLORIDE 109 MEQ/L (98-107); CREATININE 1.22 MG/DL (0.50-1.00); GLOMERULAR FILTRATION RATE 46 ML/MIN (>89); GLUCOSE,RANDOM 114 MG/DL (74-106); SODIUM (NA) 139 MEQ/L (136-145)
[2017-12-24 21:42] LABS: ALT (GPT) 23 U/L (10-53)
[2017-12-24 21:44] LABS: ALKALINE PHOSPHATASE 76 U/L (45-117); TOTAL BILIRUBIN ADULT 0.4 MG/DL (0.2-1.0)
[2017-12-24 21:57] LABS: URINE COLOR LIGHT-RED (YELLW/STRAW)
[2017-12-24 22:01] LABS: PROTHROMBIN TIME - PATIENT 9.9 SEC (9.8-11.6)
== END 2017-12-24 22:23 | disposition home or self-care (01) ==
LOC: NEPE 18:43
DX: N95.0 Postmenopausal bleeding (principal); I10 Essential (primary) hypertension
CPT/HCPCS: 76830; 76856; 80053; 81001; 85025; 85610; 85730; 86850; 86900; 86901; 87086